=== PATIENT | female | born 1980 | race Two or more races ===

== ENCOUNTER 2017-05-20 10:37 | Emergency (ER) | payer OTHER ==
[~2017-05-20] VITALS: Ht 162.6 cm; Wt 90.7 kg
[~2017-05-20 10:37] MED LIST: FER325T PO; NORPTMEDS CO; OMEP20CA74 OR; SERT-274 PO
[2017-05-20 12:38] LABS: Basophils # (auto) 0.1 uL; Basophils % (auto) 1.1 % (0.0-2.0); Eosinophils # (auto) 0.2 uL; Mean Corpuscular Volume 78.7 fL (80.0-100.0); Mean Platelet Volume 9.4 fL (6.9-10.8); Monocytes # (auto) 0.9 uL; Red Cell Distribution Width 16.1 % (11.8-14.3); White Blood Cell 10.8 10^3/uL (4.4-10.8)
[2017-05-20 12:40] LABS: Eosinophils % (auto) 2.2 % (0.0-7.0); Hemoglobin 10.2 g/dL (12.2-16.2); Lymphocytes # (auto) 3.4 uL; Lymphocytes % (auto) 31.8 % (10.0-50.0); Mean Corpuscular Hgb Conc. 31.8 g/dL (32.0-36.0); Monocytes % (auto) 8.3 % (0.0-12.0); Neutrophils # (auto) 6.1 uL; Neutrophils % (auto) 56.6 % (37.0-80.0); Platelet Count (auto) 322 10^3/uL (140-450)
[2017-05-20 12:58] LABS: Albumin 3.3 g/dL (3.4-5.0); Calcium 8.2 mg/dL (8.5-10.1); Potassium 3.8 mmol/L (3.5-5.1)
[2017-05-20 13:00] LABS: BUN/Creatinine Ratio 13.9
[2017-05-20 13:03] LABS: Bilirubin, Total 0.1 mg/dL (0.2-1.0); Total Protein 7.3 g/dL (6.4-8.2)
[2017-05-20 16:43] VITALS: BP 135/83
== END 2017-05-20 16:44 | disposition home or self-care (01) ==
LOC: ER 10:37
DX: N92.0 Excessive and frequent menstruation with regular cycle (principal); D25.9 Leiomyoma of uterus, unspecified; D64.9 Anemia, unspecified
CPT/HCPCS: 36415; 76830; 76856; 80053; 84702; 85025

== ENCOUNTER 2018-06-21 10:46 | Emergency (ER) | payer BC, OTHER ==
[~2018-06-21] VITALS: Ht 165.1 cm; Wt 76.2 kg
[2018-06-21 10:53] VITALS: BP 134/89
[2018-06-21 11:36] LABS: Urine Bacteria NONE SEEN /hpf (None Seen); Urine Blood TRACE /uL (Negative); Urine WBC 1 /hpf (0 - 5)
[2018-06-21] MEDS ORDERED: KETOROLAC TROMETH 60MG/2ML VIAL IM ONE (12:30)
== END 2018-06-21 12:53 | disposition home or self-care (01) ==
LOC: ER 10:46
DX: S39.012A Strain of muscle, fascia and tendon of lower back, initial encounter (principal); R35.0 Frequency of micturition; X50.1XXA Overexertion from prolonged static or awkward postures, initial encounter; Y93.89 Activity, other specified; Y99.8 Other external cause status; Y92.89 Other specified places as the place of occurrence of the external cause
CPT/HCPCS: 81001; 96372; 99283; J1885

== ENCOUNTER 2018-12-21 23:27 | Emergency (ER) | payer BC, OTHER ==
[~2018-12-21] VITALS: Ht 165.1 cm; Wt 79.4 kg
[2018-12-21 23:42] VITALS: BP 111/73
[2018-12-22] MEDS ORDERED: methylPREDNISolone SOD SUCC 125 MG/2 ML VL IM ONE (01:45)
[2018-12-22] MEDS ORDERED: diphenhdrAMINE HCL 25 MG CAP PO ONE (01:45)
[2018-12-22] MEDS ORDERED: EPINEPHrine HCL 1 MG/1 ML AMP SC ONE (01:45)
== END 2018-12-22 02:45 | disposition home or self-care (01) ==
LOC: ER 23:27
DX: T78.40XA Allergy, unspecified, initial encounter (principal); X58.XXXA Exposure to other specified factors, initial encounter
CPT/HCPCS: 96372; 99283; J0171; J2930

== ENCOUNTER 2019-01-08 11:39 | Emergency (ER) | payer OTHER ==
[~2019-01-08] VITALS: Ht 165.1 cm; Wt 79.4 kg
[2019-01-08 12:22] LABS: Urine Bacteria NONE SEEN /hpf (None Seen); Urine Blood TRACE /uL (Negative); Urine Specific Gravity 1.013 (1.001-1.035); Urine WBC 5 /hpf (0 - 5)
[2019-01-08 13:56] LABS: Albumin 3.9 g/dL (3.4-5.0); BUN/Creatinine Ratio 23.7; Calcium 9.1 mg/dL (8.5-10.1)
[2019-01-08 13:59] LABS: Bilirubin, Total 0.2 mg/dL (0.2-1.0); Total Protein 7.5 g/dL (6.4-8.2)
[2019-01-08 14:08] LABS: INR < 0.93 (0.9-1.15); Partial Thromboplastin Time 27.4 sec (23.64-32.05)
[2019-01-08 15:31] LABS: Basophils # (auto) 0.1 uL; Basophils % (auto) 0.8 % (0.0-2.0); Eosinophils # (auto) 0.1 uL; Eosinophils % (auto) 1.3 % (0.0-7.0); Hematocrit 43.5 % (36.0-46.0); Hemoglobin 14.3 g/dL (12.2-16.2); Lymphocytes # (auto) 2.7 uL; Lymphocytes % (auto) 35.3 % (10.0-50.0); Mean Corpuscular Hemoglobin 29.2 pg (28.0-32.0); Mean Corpuscular Hgb Conc. 32.8 g/dL (32.0-36.0); Monocytes # (auto) 0.3 uL; Monocytes % (auto) 4.2 % (0.0-12.0); Neutrophils # (auto) 4.4 uL; Neutrophils % (auto) 58.4 % (37.0-80.0); Nucleated Red Blood Cells % 0.1 %; Platelet Count (auto) 247 10^3/uL (140-450); Red Blood Cells 4.88 10^6/uL (4.0-5.20); Red Cell Distribution Width 14.2 % (11.8-14.3); White Blood Cell 7.6 10^3/uL (4.4-10.8)
[2019-01-08 16:06] VITALS: BP 129/72
[2019-01-08] MEDS ORDERED: KETOROLAC TROMETH 60MG/2ML VIAL IM ONE (16:45)
== END 2019-01-08 17:04 | disposition home or self-care (01) ==
LOC: ER 11:41
DX: N93.9 Abnormal uterine and vaginal bleeding, unspecified (principal); N39.0 Urinary tract infection, site not specified; Z90.710 Acquired absence of both cervix and uterus
CPT/HCPCS: 36415; 76856; 80053; 81001; 81025; 85025; 85610; 85730; 96372; 99284; J1885

== ENCOUNTER 2020-07-08 19:12 | Emergency (ER) | payer OTHER ==
[~2020-07-08] VITALS: Ht 162.6 cm; Wt 99.8 kg
[2020-07-08 19:20] VITALS: BP 165/80
== END 2020-07-08 20:39 | disposition home or self-care (01) ==
LOC: ER 19:12
DX: U07.1 COVID-19 (principal); E66.9 Obesity, unspecified; Z68.37 Body mass index [BMI] 37.0-37.9, adult; Z90.710 Acquired absence of both cervix and uterus
CPT/HCPCS: 71045

== ENCOUNTER 2020-07-13 10:16 | Emergency (ER) | payer OTHER ==
[~2020-07-13] VITALS: Ht 162.6 cm; Wt 99.8 kg
[~2020-07-13 10:16] MED LIST changes: -SERT-274 PO; +SERT50TA19 PO
[2020-07-13 10:35] VITALS: BP 141/81
[2020-07-13 10:53] LABS: Basophils # (auto) 0 10 ^3/uL (0-0.2); Basophils % (auto) 0.3 % (0.0-2.0); Eosinophils # (auto) 0 10 ^3/uL (0-0.8); Eosinophils % (auto) 0.1 % (0.0-7.0); Hematocrit 39.3 % (36.0-46.0); Hemoglobin 13.5 g/dL (12.2-16.2); Lymphocytes # (auto) 1.1 10 ^3/uL (0.4-5.4); Lymphocytes % (auto) 17.2 % (10.0-50.0); Mean Corpuscular Hemoglobin 29.8 pg (28.0-32.0); Mean Corpuscular Hgb Conc. 34.3 g/dL (32.0-36.0); Monocytes # (auto) 0.3 10 ^3/uL (0-1.3); Monocytes % (auto) 4.2 % (0.0-12.0); Neutrophils # (auto) 4.9 10 ^3/uL (1.6-8.6); Neutrophils % (auto) 78.2 % (37.0-80.0); Nucleated Red Blood Cells % 0.1 %; Red Blood Cells 4.51 10^6/uL (4.0-5.20); White Blood Cell 6.2 10^3/uL (4.4-10.8)
[2020-07-13 11:11] LABS: Albumin 3.5 g/dL (3.4-5.0); Anion Gap 7 (5-15); Blood Urea Nitrogen 7 mg/dL (7-18); Calcium 8.3 mg/dL (8.5-10.1); Carbon Dioxide 25 mmol/L (21-32); Chloride 100 mmol/L (98-107); Glucose 122 mg/dL (74-106); Potassium 4.2 mmol/L (3.5-5.1); Sodium 132 mmol/L (136-145)
[2020-07-13 11:17] LABS: Alanine Aminotransferase 401 U/L (13-56); Alkaline Phosphatase 152 U/L (45-117); Aspartate Aminotransferase 176 U/L (15-37); BUN/Creatinine Ratio 9.5; Bilirubin, Total 0.4 mg/dL (0.2-1.0); GFR African American 111 mL/min; GFR Non-African American 91 mL/min; Total Protein 7.6 g/dL (6.4-8.2)
[2020-07-13 12:47] LABS: Urine Bacteria NONE SEEN /hpf (None Seen); Urine Blood Negative /uL (Negative); Urine WBC 5 /hpf (0 - 5)
== END 2020-07-13 14:54 | disposition home or self-care (01) ==
LOC: ER 10:16
DX: U07.1 COVID-19 (principal); J12.82 Pneumonia due to coronavirus disease 2019; R07.89 Other chest pain; F41.9 Anxiety disorder, unspecified; R09.1 Pleurisy; Z79.899 Other long term (current) drug therapy
CPT/HCPCS: 36415; 71045; 80053; 81001; 84484; 85025; 93005